=== PATIENT | male | born 2000 | race Caucasian/White ===

== ENCOUNTER 2025-10-06 09:36 | Emergency (ER) | payer OTHER, SELFPAY ==
--- OUTSIDE RECORDS SUMMARY | 2025-10-06 09:46 | XMS_ITS | Clinical Summary ---
Author Organization [employer] Address [address] [place] [address] Care Team Providers Care Secretarial Stenographer Name Role Phone No, Pcp DIRECTOR OF SOCIAL SERVICES Primary Care Provider Unavailabl e Social History Tobacco Use Types Packs/Day Years Used Date Smoking Tobacco: Never Assessed Sex and Gender Information Value Date Recorded Sex Assigned at Not on file Legal Sex Male 6:31 PM EST Gender Identity Not on file Sexual Orientation Not on file Plan of Treatment Not on file Medical Devices Not on file Care Teams Secretarial Stenographer Relationship Specialty Start Date End Date No, Pcp, DIRECTOR OF SOCIAL SERVICES N/A Do not use PCP - General Family Medicine 08/27/20
[2025-10-06 09:49] VITALS: BP 136/81; PULSE 81; RESP 18; TEMP 36.2; O2SAT 100
[2025-10-06 10:10] LABS: EDSTREPNEGPOS1 Negative (Negative)
--- NOTE | 2025-10-06 10:13 | ED.URI ---
HPI - URI/Sore Throat General Chief Complaint: Upper Respiratory Infection Stated Complaint: Cold Like Time Seen by Provider: 10/06/25 10:05 Source: patient and RN notes reviewed Mode of arrival: ambulatory Limitations: no limitations History of Present Illness HPI Narrative: 25-year-old male patient presents Express Care complaining of upper respiratory symptoms for 8 days patient reports cough, congestion, sinus pressure, mucopurulent nasal drainage that is not getting much better. Patient tried [id number] Mucinex without relief. Patient denies any other upper respiratory symptoms, fevers, body aches and chills, nausea vomiting, diarrhea, chest pain, difficulty breathing, any other symptoms. Patient denies any significant past medical history other than eczema. Related Data Home Medications ?Medication ?Instructions ?Recorded ?Confirmed ?Last Taken ?Type lebrikizumab-lbkz 250 mg/2 mL mg subcut 10/06/25 Unknown History subcutaneous pen injector (Ebglyss Pen) Allergies Allergy/AdvReac Type Severity Reaction Status Date / Time No Known Drug Allergies AdvReac Unknown Unknown Verified 10/06/25 09:42 Review of Systems Review of Systems: CONSTITUTIONAL: Denies fever, chills, or sweats. EYES: Denies visual changes, redness, or discharge. ENT: Denies rhinorrhea, sore throat, or otalgia. Positive for congestion and sinus pressure. CARDIOVASCULAR: Denies chest pain, palpitations, or edema. RESPIRATORY: Positive for cough. Negative for wheezing were Dyspnea. GASTROINTESTINAL: Denies abdominal pain, nausea, vomiting, or diarrhea. GENITOURINARY: Denies dysuria or hematuria. SKIN: Denies rash or itching. MUSCULOSKELETAL: Denies back pain, joint pain, or myalgia. NEUROLOGIC: Denies headache, numbness, or weakness. PSYCHIATRIC: Denies anxiety or depression. All other systems reviewed are negative, except as documented in HPI. [facility] Past Medical History Medical History Nummular eczema BMI 31.0-31.9,adult Eustachian tube dysfunction BMI 30.0-30.9,adult Encounter for routine adult health examination without abnormal findings BMI 32.0-32.9,adult Follow up Encounter to establish care Rash Social History Social History (Reviewed 10/06/25 @ 10:28 by SOFIA Rivers Smoking status: Never smoker Comments At the time of my signature, I reviewed and agree with the nursing past medical, surgical, social, and family history. There is no relevant family history pertinent to the patient complaint. Exam Narrative: GENERAL: This is a well-nourished, well-developed adult, in no apparent distress. They are non ill-appearing, nontoxic appearing. HEAD: normocephalic, atraumatic. EYES: Sclera clear/white. Conjunctiva normal. Vision is grossly intact. Extraocular movements intact EARS: External ears normal, auditory canals clear and without drainage, TMs normal without perforation. Hearing grossly intact. NOSE: External nose normal with no obvious nasal discharge, nasal turbinates erythematous with exudate, no rhinorrhea. Maxillary sinus tenderness to palpation THROAT: Mucous membranes moist, posterior pharynx erythematous. Uvula midline. Postnasal drip present. NECK: Neck supple, non-tender without lymphadenopathy, masses or thyromegaly. CARDIOVASCULAR: Regular rate and rhythm without murmurs, gallops, or rubs. RESPIRATORY: Clear to auscultation. Breath sounds equal bilaterally. No wheezes, rales, or rhonchi. SKIN: warm, Dry, intact with no suspicious lesions or rash, good texture and turgor. NEURO: awake, alert, and oriented to person, place and time. There were no obvious focal neurologic abnormalities. EXTREMITIES: No joint tenderness, effusion, or edema noted. BACK: Nontender without deformity. Course Course Level of Care: Express Care Visit Vital Signs Vital signs: Vital Signs Temperature 97.1 F L 10/06/25 09:49 Pulse Rate 81 10/06/25 09:49 Respiratory Rate 18 10/06/25 09:49 Blood Pressure 136/81 10/06/25 09:49 Pulse Oximetry 100 10/06/25 09:49 Oxygen Delivery Room Air 10/06/25 09:49 Temperature 97.1 F L 10/06/25 09:49 Pulse Rate 81 10/06/25 09:49 Respiratory Rate 18 10/06/25 09:49 Blood Pressure 136/81 10/06/25 09:49 Pulse Oximetry 100 10/06/25 09:49 Oxygen Delivery Room Air 10/06/25 09:49 [facility] Narrative Medical decision making narrative: Patient likely has bacterial sinusitis given length of symptoms. Will treat with Augmentin. Discussed physical exam findings. Advised supportive measures and signs/symptoms to go to the ER. Pt is appropriate for outpt treatment and f/u. Differential Diagnosis Differential Diagnosis: Differential diagnostic considerations for upper respiratory infection include upper respiratory infection, croup, otitis media, sinusitis, viral infection, bronchitis, influenza, pharyngitis, strep, uvulitis. Lab Data MDM Lab Attestation statement: I personally reviewed the patient's lab results. Labs: Lab Results 10/06/25 Range/Units 10:09 POC Grp A Strep Screen Negative (Negative) Critical Care Time Critical Care Time Critical Care Time: No Discharge Plan Discharge Clinical Impression: Sinusitis Qualifiers: Sinusitis location: unspecified location Chronicity: acute Recurrence: non-recurrent Qualified Code(s): J01.90 - Acute sinusitis, unspecified Patient Disposition: Home Condition: Stable Instructions: Antibiotic Form, Sinusitis (ED) Additional Instructions: Take the antibiotics as directed and complete the course even if you start to feel better. You may use a Neti pot saline rinse 3 times a day with lukewarm distilled water Continue to take Tylenol or Motrin needed for pain or fevers. Use a humidifier or vaporizer at night. Drink plenty of water. 8-10 glasses per day. Use flonase 2 times per day for 5 days then as needed Take mucinex 2 times per day and be sure to take with 8oz of water. Follow up with Primary provider in 3-5 days Please go to the ER if he develops any difficulty breathing, chest pain, vomiting, worsening symptoms, or any other serious concerns Patient Language: Lithuanian Prescriptions: New amoxicillin-pot clavulanate 875-125 mg tablet 1 tablet PO Q12H 7 Days Qty: 14 0RF No Action Ebglyss Pen 250 mg/2 mL pen injector SUBCUT betamethasone dipropionate 0.05 % cream 1 applic topical BID PRN (Reason: rash) Qty: 60 3RF triamcinolone acetonide 0.5 % cream 1 applic topical BID Qty: 60 3RF Eucrisa 2 % ointment See Rx Instructions .ROUTE .COMPLEX Qty: 60 2RF Dose Instruction: APPLY TOPICALLY TO THE AFFECTED AREA TWICE DAILY Rx Instructions: APPLY TOPICALLY TO THE AFFECTED AREA TWICE DAILY methylprednisolone [Medrol (Quentin)] 4 mg tablets,dose pack See Rx Instructions PO PER PKG DIR Qty: 21 0RF Rx Instructions: PO PER PKG DIR ondansetron 8 mg tablet,disintegrating 8 mg PO TID PRN (Reason: nausea and vomiting) Qty: 15 0RF Follow-up/Referrals: PHYSICIAN,CREATIVE SERVICES DESIGNER [Primary Care Provider, Internal Medicine] Time of Disposition: 10:13
== END 2025-10-06 10:15 | disposition home or self-care (01) ==
DX: J01.90 Acute sinusitis, unspecified (principal)
CPT/HCPCS: 87081; 87880; 99213; G0463